=== PATIENT | female | born 1980 | race Two or more races ===

== ENCOUNTER 2016-10-18 09:28 | Inpatient (IN) | payer OTHER ==
[2016-10-18 10:35] LABS: ROM Internal QC QC Line Present
[2016-10-18] MEDS ORDERED: Oxytocin in LR* 20 UNITS/1,000 ML BAG IVPB SCH ×2 (11:00→16:17)
[2016-10-18 11:23] LABS: Hematocrit 36 % (35-47); Hemoglobin 12.2 g/dl (12.0-16.0); Mean Corpuscular HGB Conc 34 g/dl (31-36); Mean Corpuscular Hemoglobin 31 pg (27-31); Mean Corpuscular Volume 90 fL (80-97); Mean Platelet Volume 9 um3 (7.4-10.4); Red Blood Count 3.99 10^6/ul (4.0-5.4); Red Cell Distribution Width 15 % (10.5-15)
[2016-10-18] MEDS ORDERED: OBEPIDURAL* 250 ML ONE (12:52)
[2016-10-18] MEDS ORDERED: Famotidine TAB* 20 MG PO PRN (13:41)
[2016-10-18] MEDS ORDERED: Phenylephrine IV* 40 MCG/ML 10 ML SYRINGE IV PUSH PRN ×2 (13:41)
[2016-10-18] MEDS ORDERED: Sodium Citrate/Citric Acid* 15 ML UDC PO PRN (13:41)
[2016-10-18] MEDS ORDERED: OBEPIDURAL* 250 ML EPIDURAL SCH (14:00)
[2016-10-18] MEDS ORDERED: Dibucaine 1% 28.35 GM TUBE PR PRN (16:14)
[2016-10-18] MEDS ORDERED: Acetaminophen TAB* 325 MG PO PRN (16:14)
[2016-10-18] MEDS ORDERED: Glycerin ADULT SUPP PR PRN (16:14)
[2016-10-18] MEDS ORDERED: oxyCODONE/Acetamin 5/325 MG* TAB PO PRN (16:14)
[2016-10-18] MEDS: Ibuprofen TAB* 600 MG PO PRN (18:30)
[2016-10-18] MEDS: Witch Hazel PAD* JAR TOPICAL PRN ×2 (18:30→23:12)
[2016-10-18] MEDS: Docusate CAP* 100 MG PO SCH (22:32)
[2016-10-19] MEDS: Ibuprofen TAB* 600 MG PO PRN ×4 (01:28→21:58)
[2016-10-19] MEDS: Levothyroxine TAB* 150 MCG TAB PO SCH (05:55)
[2016-10-19] MEDS: Docusate CAP* 100 MG PO SCH ×3 (09:18→21:58)
[2016-10-19 09:26] LABS: Hematocrit 33 % (35-47); Hemoglobin 11.2 g/dl (12.0-16.0); Mean Corpuscular HGB Conc 34 g/dl (31-36); Mean Corpuscular Hemoglobin 30 pg (27-31); Mean Corpuscular Volume 90 fL (80-97); Mean Platelet Volume 9 um3 (7.4-10.4); Red Blood Count 3.71 10^6/ul (4.0-5.4); Red Cell Distribution Width 15 % (10.5-15); White Blood Count 18.3 10^3/ul (3.5-10.8)
--- NOTE | 2016-10-19 20:31 | PTEDU ---
Patient Name: REJI SIMON REJI SIMON selected video: Follow Me Mum: [employer] [facility] to view on 10/02 at 8:30:54 PM from [email or web address]
[2016-10-19] MEDS: Ferrous Gluconate TAB* 324 MG TAB PO SCH ×2 (20:39→23:30)
--- NOTE | 2016-10-19 20:56 | PTEDU ---
Patient Name: REJI SIMON REJI SIMON selected video: Follow Me Mum: [employer] [facility] to view on 10/02 at 8:56:26 PM from [email or web address]
[2016-10-20] MEDS: Levothyroxine TAB* 150 MCG TAB PO SCH (05:34)
[2016-10-20] MEDS: Ibuprofen TAB* 600 MG PO PRN (05:34)
[2016-10-20 08:44] VITALS: BP 117/67
[2016-10-20] MEDS: Docusate CAP* 100 MG PO SCH (09:13)
--- NOTE | 2016-10-20 10:28 | PTEDU ---
Patient Name: REJI SIMON REJI SIMON selected video: Follow Me Mum: [facility] to view on 10/02 at 10:27:29 AM from [email or web address]
--- NOTE | 2016-10-20 10:50 | PTEDU ---
Patient Name: REJI SIMON REJI SIMON selected video: Never Ever Shake a Baby to view on 10/20/2016 at 10:50:04 AM [id number]
== END 2016-10-20 15:41 | disposition home or self-care (01) | DRG 775 ==
LOC: MCHOBOUT 09:28 → MCHOB 10:50
PROVIDERS: ADMIT Midwife; ATTEND Midwife
PROC: 4A1HX4Z Monitoring of Products of Conception, Cardiac Electrical Activity, External Approach (ICD-10-PCS; principal; 2016-10-18)
PROC: 10E0XZZ Delivery of Products of Conception, External Approach (ICD-10-PCS; 2016-10-18)
PROC: 0HQ9XZZ Repair Perineum Skin, External Approach (ICD-10-PCS; 2016-10-18)
DX: O99.283 Endocrine, nutritional and metabolic diseases complicating pregnancy, third trimester (principal); D68.51 Activated protein C resistance; O99.113 Other diseases of the blood and blood-forming organs and certain disorders involving the immune mechanism complicating pregnancy, third trimester; O09.513 Supervision of elderly primigravida, third trimester; Z3A.39 39 weeks gestation of pregnancy; O70.0 First degree perineal laceration during delivery; E03.9 Hypothyroidism, unspecified; Z37.0 Single live birth; E06.3 Autoimmune thyroiditis
CPT/HCPCS: 36415; 84112; 85025; 85027; 86850; 86900; 86901; A9270-GY

== ENCOUNTER 2019-12-04 10:14 | Inpatient (IN) ==
[2019-12-04] MEDS ORDERED: Witch Hazel PAD JAR TOPICAL PRN (11:08)
[2019-12-04] MEDS: Dibucaine 1% OINT 28.35 GM TUBE PR PRN (12:18)
[2019-12-04 13:18] LABS: Urine Benzodiazepine Screen None Detected (None Detect); Urine Opiates Screen None Detected (None Detect)
[2019-12-05] MEDS: Dibucaine 1% OINT 28.35 GM TUBE PR PRN (01:40)
[2019-12-05 07:22] LABS: ABS Eosinophils 0.1 10^3/ul (0-0.6); ABS Lymphocytes 1.8 10^3/ul (1.0-4.8); ABS Monocytes 0.7 10^3/ul (0-0.8); Eosinophil % 0.8 %; Hematocrit 34 % (35-47); Hemoglobin 11.6 g/dL (12.0-16.0); Lymphocyte % 13.8 %; Mean Corpuscular HGB Conc 35 g/dL (31-36); Mean Corpuscular Hemoglobin 30 pg (27-31); Mean Corpuscular Volume 88 fL (80-97); Mean Platelet Volume 9.2 fL (7.4-10.4); Platelet Count 273 10^3/uL (150-450); Red Blood Count 3.81 10^6 /uL (3.70-4.87); Red Cell Distribution Width 15 % (10-15); White Blood Count 12.8 10^3/uL (3.5-10.8)
[2019-12-06 09:00] VITALS: BP 109/67
== END 2019-12-06 12:43 | disposition home or self-care (01) | DRG 806 ==
LOC: MCHOBOUT 10:14 → MCHOB 10:33
PROVIDERS: ADMIT Midwife; ATTEND Midwife